=== PATIENT | female | born 1990 ===

== ENCOUNTER 2018-05-16 19:27 | Emergency (ER) | payer OTHER ==
[2018-05-17 00:50] VITALS: BP 122/70; PULSE 72; RESP 18; TEMP 98; O2SAT 99
--- NOTE | 2018-05-19 13:14 | ED PDOC ---
HPI: Psych/Substance Abuse Time Seen by Provider: 05/16/18 20:42 Chief Complaint (Nursing): Psychiatric Evaluation Additional Complaint(s): 27 y/o female with PMH autism, anxiety, depression, OCD, presents to the ED with her mother for psychiatric evaluation. Pt has been feeling very depressed lately and believes her typical medication regimen is not working. She is compliant with her medication and follows up regularly with her psychiatrist and therapist, last visit to psychiatrist Dr. Sutton 1 month ago at [facility]. Pt offering no physical complaints at this time. Denies substance use, SI, HI, hallucinations, delusions, fever, chills, abdominal pain, headache, cough, back pain, chest pain, SOB, Past Medical History Reviewed: Historical Data, Nursing Documentation, Vital Signs Vital Signs: Last Vital Signs Temp 98 F 05/16/18 23:30 Pulse 72 05/16/18 23:30 Resp 18 05/16/18 23:30 BP 122/70 05/16/18 23:30 Pulse Ox 99 05/16/18 23:30 - Medical History PMH: Depression Denies: Diabetes, Hepatitis, HIV, HTN, Seizures, Sexually Transmitted Disease Other PMH: Anxiety, OCD, Autism - Family History Family History: States: Unknown Family Hx - Allergies Allergies/Adverse Reactions: Allergies Allergy/AdvReac Type Severity Reaction Status Date / Time Penicillins Allergy RASH Verified 05/16/18 19:31 Review of Systems ROS Statement: Except As Marked, All Systems Reviewed And Found Negative Constitutional: Negative for: Fever, Chills Eyes: Negative for: Vision Change ENT: Negative for: Nose Congestion Cardiovascular: Negative for: Chest Pain, Palpitations Respiratory: Negative for: Cough, Shortness of Breath Gastrointestinal: Negative for: Nausea, Vomiting, Abdominal Pain Genitourinary Female: Negative for: Dysuria, Frequency Musculoskeletal: Negative for: Neck Pain, Back Pain Skin: Negative for: Rash Neurological: Negative for: Weakness, Numbness, Incoordination, Headache, Dizziness Psych: Positive for: Anxiety, Depression. Negative for: Psychosis, Suicidal ideation, Withdrawal Physical Exam - Reviewed Nursing Documentation Reviewed: Yes Vital Signs Reviewed: Yes - Physical Exam Appears: Positive for: Well, Non-toxic, No Acute Distress Head Exam: Positive for: ATRAUMATIC, NORMAL INSPECTION, NORMOCEPHALIC Skin: Positive for: Normal Color, Warm, DRY Eye Exam: Positive for: EOMI, Normal appearance, PERRL ENT: Positive for: Normal ENT Inspection Neck: Positive for: Normal, Painless ROM Cardiovascular/Chest: Positive for: Regular Rate, Rhythm Respiratory: Positive for: CNT, Normal Breath Sounds Pulses-Radial (L): 2+ Pulses-Radial (R): 2+ Gastrointestinal/Abdominal: Positive for: Normal Exam, Bowel Sounds (normal), Soft. Negative for: Tenderness Back: Positive for: Normal Inspection Extremity: Positive for: Normal ROM Neurologic/Psych: Positive for: Alert, glaucoma specialist II-XII (intact), Oriented, Mood/ Affect (appropriate), Gait (steady). Negative for: Motor/Sensory Deficits - Laboratory Results Urine POC: Negative - ECG O2 Sat by Pulse Oximetry: 99 Medical Decision Making Medical Decision Making: Initial Plan: * Crisis Evaluation * POC urine preg Pt offering no physical complaints at this time, requires no further workup with normal physical exam findings. Impression Depression, Anxiety, Autism Plan Followup with PSYCHIATRIC as instructed by crisis Take home medications as prescribed Return to ER for new/worsening symptoms Disposition - Clinical Impression Clinical Impression: Anxiety disorder, unspecified, Depression, Autism - Patient ED Disposition Is Patient to be Admitted: No - Disposition Disposition: Routine/Home Disposition Time: 23:25 Condition: STABLE Additional Instructions: Followup with [facility] per Crisis Followup with psychiatry and therapy as scheduled Return to ER for new or worsening symptoms Forms: Havsjo Delikatesser (Mexican)
== END 2018-05-16 23:45 | disposition home or self-care (01) ==
LOC: H.ER 19:27
DX: F41.9 Anxiety disorder, unspecified (principal); F32.9 Major depressive disorder, single episode, unspecified; F84.0 Autistic disorder; Z88.0 Allergy status to penicillin

== ENCOUNTER 2018-07-27 11:46 | Inpatient (IN) | payer OTHER ==
[2018-07-27 11:48] VITALS: BMI 43.4
--- NOTE | 2018-07-27 12:33 | ED PDOC ---
HPI: Psych/Substance Abuse Time Seen by Provider: 07/27/18 12:18 Chief Complaint (Nursing): Psychiatric Evaluation Chief Complaint (Provider): Psyciatric Evaluation History Per: Patient History/Exam Limitations: no limitations Onset/Duration Of Symptoms: Days (4x) Current Symptoms Are (Timing): Still Present Severity: Moderate Associated Symptoms: Suicidal Thoughts. denies: Suicidal Plan, Other (hallucinations) Additional Complaint(s): 28 year old female with a past medical history of depression, anxiety, bipolar d isorder, and OCD is sent to the ED by her therapist () for a psychiatric evaluation secondary to having suicidal thoughts x4 days. Patient denies having a specific plan, and states that she does not want to hurt herself, but cannot control these thoughts. Denies A/V hallucinations, HI. Last known menstrual period: 07/16/2018. (-) substance abuse, (-) physical complaints. PMD: Zohra Egan MD Past Medical History Reviewed: Historical Data, Nursing Documentation, Vital Signs Vital Signs: Last Vital Signs Temp 98.1 F 07/27/18 11:48 Pulse 89 07/27/18 11:48 Resp 20 07/27/18 11:48 BP 132/84 07/27/18 11:48 Pulse Ox 100 07/27/18 11:48 - Medical History PMH: Anxiety, Bipolar Disorder, Depression Other PMH: OCD, autism - Surgical History Surgical History: No Surg Hx - Family History Family History: States: No Known Family Hx - Social History Current smoker - smoking cessation education provided: Yes Alcohol: Occasional Drugs: Denies - Home Medications Home Medications: Ambulatory Orders Medication Instructions Recorded clonazePAM [Klonopin] 1 mg PO HS 07/27/18 lamoTRIgine [Lamictal] 25 mg PO HS 07/27/18 - Allergies Allergies/Adverse Reactions: Allergies Allergy/AdvReac Type Severity Reaction Status Date / Time Penicillins Allergy RASH Verified 07/27/18 12:13 Review of Systems ROS Statement: Except As Marked, All Systems Reviewed And Found Negative Constitutional: Negative for: Fever Respiratory: Negative for: Shortness of Breath Gastrointestinal: Negative for: Vomiting Neurological: Negative for: Headache Psych: Positive for: Suicidal ideation. Negative for: Other (suicidal plan, homicidal ideation, hallucinations (auditory and visual)) Physical Exam - Reviewed Nursing Documentation Reviewed: Yes Vital Signs Reviewed: Yes - Physical Exam Comments: GENERAL APPEARANCE: Patient is awake, alert, oriented x 3, in no acute distress; resting comfortably. SKIN: Warm, dry; (-) cyanosis ENMT: Mucous membranes moist. Airway patent: (-) stridor. NECK: Supple, FROM HEART AND CARDIOVASCULAR: (-) irregularity CHEST AND RESPIRATORY: (-) rales, (-) rhonchi, (-) wheezes; breath sounds equal bilaterally. Respirations even and nonlabored. ABDOMEN: Soft, (-) distention, (-) tenderness, (-) guarding. NEURO AND PSYCH: Mental status as above. Affect: flat. (-) facial asymmetry. Gait: steady. Speech: clear. - Laboratory Results Result Diagrams: 07/27/18 13:36 07/27/18 13:36 Urine POC: Negative - ECG O2 Sat by Pulse Oximetry: 100 (RA) Pulse Ox Interpretation: Normal Medical Decision Making Medical Decision Makin:18 Clinical impression: 28 year old female presents to the ED for a psychiatric evaluation Initial plan: * crisis evaluation * 1:1 observation * reevaluation 1250 Crisis at bedside. 1310 Per crisis evaluation, patient to be admitted for Depression per Dr Ayon. CBC, CMP, serum alcohol, U/A, Upreg, UDS ordered for medical clearance. 1340 Upreg: negative 1430 On re-evaluation, patient resting comfortably. Labs reviewed and grossly unremarkable. Utox: negative Serum alcohol < 10. U/A with trace leukocytes and no nitrates. In presence of squamous epithelial cells, likely contamination. Patient denies urinary symptoms. Patient is medically stable for psychiatric admission. Arrangements made for admission - patient agreeable to admission. Scribe Attestation: Documented David Maharaj, acting as a scribe for Lexus K Edwin RPA- C. Provider Scribe Attestation: All medical record entries made by the Scribe were at my direction and personally dictated by me. I have reviewed the chart and agree that the record accurately reflects my personal performance of the history, physical exam, medical decision making, and the department course for this patient. I have also personally directed, reviewed, and agree with the discharge instructions and disposition. Disposition - Clinical Impression Clinical Impression: Depression - Patient ED Disposition Is Patient to be Admitted: Yes Counseled Patient/Family Regarding: Studies Performed, Diagnosis - Disposition Disposition Time: 14:30 Condition: FAIR - Pt Status Changed To: Hospital Disposition Of: Inpatient - Admit Certification Admit to Inpatient:: After my assessment, the patient will require hospitalization for at least two midnights. This is because of the severity of symptoms shown, intensity of services needed, and/or the medical risk in this patient being treated as an outpatient. - POA Present On Arrival: None Results - Lab Results Lab Results: 07/27/18 07/27/18 07/27/18 13:36 13:36 13:15 WBC 10.1 RBC 4.78 Hgb 14.5 Hct 42.8 MCV 89.6 MCH 30.3 MCHC 33.9 RDW 13.9 Plt Count 353 MPV 8.4 Neut % (Auto) 56.9 Lymph % (Auto) 29.3 Dewey % (Auto) 7.3 Eos % (Auto) 5.2 H Baso % (Auto) 1.3 Neut # (Auto) 5.8 Lymph # (Auto) 3.0 Dewey # (Auto) 0.7 Eos # (Auto) 0.5 Baso # (Auto) 0.1 Sodium 139 Potassium 4.4 Chloride 100 Carbon Dioxide 26 Anion Gap 17 BUN 14 Creatinine 0.8 Est GFR ( Amer) > 60 Est GFR (Non-Af Amer) > 60 Random Glucose 102 Calcium 9.8 Total Bilirubin 0.5 AST 27 ALT 38 Alkaline Phosphatase 115 Total Protein 8.5 H Albumin 4.6 Globulin 3.9 Albumin/Globulin Ratio 1.2 Urine Color Yellow Urine Clarity Slighty-cloudy Urine pH 5.0 Ur Specific [place] 1.017 Urine Protein Negative Urine Glucose (UA) Neg Urine Ketones Negative Urine Blood Negative Urine Nitrate Negative Urine Bilirubin Negative Urine Urobilinogen 0.2-1.0 Ur Leukocyte Esterase Trace Urine RBC (Auto) 3 Urine Microscopic WBC 4 Ur Squamous Epith Cells 5 Urine Bacteria Rare Urine Opiates Screen Urine Methadone Screen Ur Barbiturates Screen Ur Phencyclidine Scrn Ur Amphetamines Screen U Benzodiazepines Scrn U Oth Cocaine Metabols U Cannabinoids Screen Alcohol, Quantitative < 10 07/27/18 13:15 WBC RBC Hgb Hct MCV MCH MCHC RDW Plt Count MPV Neut % (Auto) Lymph % (Auto) [place] % (Auto) Eos % (Auto) Baso % (Auto) Neut # (Auto) Lymph # (Auto) Dewey # (Auto) Eos # (Auto) Baso # (Auto) Sodium Potassium Chloride Carbon Dioxide Anion Gap BUN Creatinine Est GFR ( Amer) Est GFR (Non-Af Amer) Random Glucose Calcium Total Bilirubin AST ALT Alkaline Phosphatase Total Protein Albumin Globulin Albumin/Globulin Ratio Urine Color Urine Clarity Urine pH Ur Specific [place] Urine Protein Urine Glucose (UA) Urine Ketones Urine Blood Urine Nitrate Urine Bilirubin Urine Urobilinogen Ur Leukocyte Esterase Urine RBC (Auto) Urine Microscopic WBC Ur Squamous Epith Cells Urine Bacteria Urine Opiates Screen Negative Urine Methadone Screen Negative Ur Barbiturates Screen Negative Ur Phencyclidine Scrn Negative Ur Amphetamines Screen Negative U Benzodiazepines Scrn Negative U Oth Cocaine Metabols Negative U Cannabinoids Screen Negative Alcohol, Quantitative
[2018-07-27 13:50] LABS: BASO # 0.1 K/uL (0.0-0.2); BASO % 1.3 % (0.0-2.0); EOS # 0.5 K/uL (0.0-0.7); EOS % 5.2 % (0.0-4.0); HEMOGLOBIN 14.5 g/dL (12.0-16.0); LYMPH % 29.3 % (20.0-40.0); MEAN CELL VOLUME 89.6 fl (81.0-99.0); MEAN CORPUSCULAR HEMOGLOBIN 30.3 pg (27.0-31.0); MEAN CORPUSCULAR HGB CONC 33.9 g/dL (33.0-37.0); MEAN PLATELET VOLUME 8.4 fl (7.2-11.7); MONO # 0.7 K/uL (0.0-0.8); MONO % 7.3 % (0.0-10.0); NEUT # 5.8 K/uL (1.8-7.0); NEUT % 56.9 % (50.0-75.0); NRBC % 0.1 % (0.0-0.0); RBC 4.78 Mil/uL (3.80-5.20); RED CELL DISTRIBUTION WIDTH 13.9 % (11.5-14.5); WHITE BLOOD COUNT 10.1 K/uL (4.8-10.8)
[2018-07-27 14:03] LABS: ALB/GLOB RATIO 1.2 (1.0-2.1); ALBUMIN 4.6 g/dL (3.5-5.0); ALT/SGPT 38 U/L (9-52); AST/SGOT 27 U/L (14-36); BLOOD UREA NITROGEN 14 mg/dl (7-17); CALCIUM 9.8 mg/dL (8.4-10.2); GFR NON-AFRICAN AMERICAN > 60
[2018-07-27 14:03] LABS: BARBITURATES, UR NEGATIVE (NEGATIVE); BENZODIAZEPINES, UR NEGATIVE (NEGATIVE); OPIATES, UR NEGATIVE (NEGATIVE); PHENCYCLIDINE, UR NEGATIVE (NEGATIVE)
[2018-07-27 14:10] LABS: SQUAMOUS EPITHIAL 5 /hpf (0-5); URINE BACTERIA RARE (<OCC); URINE BILIRUBIN NEGATIVE (NEGATIVE); URINE BLOOD NEGATIVE (NEGATIVE); URINE CLARITY SLIGHTY-CLOUDY (Clear); URINE COLOR YELLOW (YELLOW); URINE GLUCOSE (UA) NEG (NEGATIVE); URINE LEUKOCYTE ESTERASE TRACE Leu/uL (Negative); URINE PROTEIN NEGATIVE (NEGATIVE); URINE UROBILINOGEN 0.2-1.0 mg/dL (0.2-1.0)
[2018-07-27 16:52] VITALS: RESP 18
[2018-07-27] MEDS ORDERED: Magnesium Hydroxide Susp 30 ml UD PO PRN (18:19)
[2018-07-27] MEDS ORDERED: DiphenhydrAMINE 50 mg/ml Inj IM PRN (18:19)
[2018-07-27] MEDS ORDERED: Alum-Mag Hydrox-Simethicone Susp (30 mL) PO PRN (18:19)
--- NOTE | 2018-07-27 18:38 | PCM.BM ---
Treatment assets and liabiliti Patient Assests: cooperative, self-reliant, ADL independent, physically healthy, good support system - Milieu Protocol Maintain good personal hygiene: daily Encourage regular showers, daily Remind patient to perform daily oral care, daily Assist patient to perform ADL's Conduct patient checks and document Observation sheet: Q15 minutes Maintain personal safety: every shift Educate patient to report safety concerns to staff, every shift Monitor environment for contraband/sharps Medication safety: Monitor for expected outcome, potential side effects: daily, Assess barriers to learning: daily, Assess readiness for medication education: daily
[2018-07-27 19:04] VITALS: O2SAT 100
[2018-07-28 08:15] LABS: T4 10.2 ug/dl (5.5-11.0)
[2018-07-28] MEDS ORDERED: Influenza Vaccine (5 YR UP)/PF 60 MCG/0.5 ML SYR IM ONE (09:00)
[2018-07-28] MEDS ORDERED: Pneumococcal 23-Valent Vaccine IM ONE (10:00)
--- NOTE | 2018-07-28 22:19 | PCM.PSYCH ---
Initial Psychiatric Evaluation - Initial Psychiatric Evaluation Type of Admission: Voluntary Chief Complaint (in patient's own words): went to my dr, i was feeling down, made general statement about not wanting to be in this world, Patient's Reaction to Hospitalization: signed voluntarily History of Present Illness and Precipitating Events: signed in voluntarily but later submitted 48 hour notice-reports due to have austism spectrum concerns liking routine when not in familiar environment gets more nervous what to go home with familiar circumstances Current Medications: Active Medications Generic Name Dose Route Start Last Admin Trade Name Freq PRN Reason Stop Dose Admin Acetaminophen 650 mg 07/27/18 18:19 Tylenol 325mg Tab PO Q4 PRN pain (4-7) Al Hydrox/Mg Hydrox/Simethicone 30 ml 07/27/18 18:19 Maalox Plus 30 Ml PO Q4 PRN Dyspepsia Clonazepam 1 mg 07/28/18 22:00 07/28/18 21:48 Klonopin PO 1 mg HS VANNA Administration Diphenhydramine HCl 50 mg 07/27/18 18:19 Benadryl IM Q6 PRN Extrapyramidal S/S Unable PO Diphenhydramine HCl 50 mg 07/27/18 18:26 07/28/18 00:05 Benadryl PO 50 mg HS PRN Administration Sleep Diphenhydramine HCl 50 mg 07/27/18 20:02 Benadryl PO Q6 PRN Extrapyramidal Symptoms Haloperidol 5 mg 07/27/18 18:19 Haldol PO Q4 PRN Agitation Haloperidol Lactate 5 mg 07/27/18 18:19 Haldol IM Q4 PRN Agitation, Unable to Take PO Lamotrigine 25 mg 07/28/18 22:00 Lamictal PO BID VANNA Lorazepam 2 mg 07/27/18 18:19 Ativan IM Q4 PRN Anxiety/Agitation,Unable PO Lorazepam 1 mg 07/27/18 18:27 07/27/18 21:24 Ativan PO 1 mg Q8 PRN Administration Anxiety Magnesium Hydroxide 30 ml 07/27/18 18:19 Milk Of Magnesia PO HS PRN Constipation Past Psychiatric History - Past Psychiatric History Prior Professional Help: opd, inpt Duration: multiple varied Explanation of prior treatment: pt treatment at [facility] per [facility] opd, previous inpt and opd treatment-ocd, anxiety, autism spectrum, bipolor II History of Abuse: denies History of ETOH/Drug Use: denied History of Family Illness: denied Pertinent Medical Hx (Current Medical&Sleep Prob, Allergies): Allergies Allergy/AdvReac Type Severity Reaction Status Date / Time Penicillins Allergy RASH Verified 07/27/18 12:13 clonazePAM [Klonopin] 1 mg PO HS 07/27/18 lamoTRIgine [Lamictal] 25 mg PO HS 07/27/18 Review of Systems - Psychiatric Psychiatric: Abnormal Sleep Pattern, Anxiety, Depression, Irritability, Mood Swings, Suicidal Ideation Mental Status Examination - Personal Presentation Personal Presentation: Looks stated age - Affect Affect: Constricted - Motor Activity Motor Activity: Psychomotor Retardation - Reliability in Providing Information Reliability in Providing Information: Fair - Speech Speech: Organized - Formal Thought Process Formal Thought Process: Loosening of associations - Obsessions/Compulsions Obsessions: Yes Description of Obsession/Compulsion: renumerative thoughts - Cognitive Functions Orientation: Person, Place, Situation Sensorium: Alert Attention/Concentration: Attentive Judgement: Imparied, as evidence by: Poor judgement Memory: Remote impaired as evidenced by: Other - Risk Risk: Suicidal, Diminished functioning - Strength & Assets Inventory Strength & Assets Inventory: Family support, Cooperative (recent changes in medication per pt, family stressors ) DSM 5 DX - DSM 5 DSM 5 Diagnosis: bipor II hx ocd, autism spectrum, insomnia - Recommended/Plan of Treatment Treatment Recommendations and Plan of Treatment: admission per attending md vital signs and clinical observation per protocol and per clinical status prns per protocol and per clinical status hospitalist consult review significance of 48 hours pt defers withdrawal of 48 hour notice increase lamictal to 50mg po hs (from increase 25 mg po hs) discharge planning in process Projected ELOS: 5-7 days Prognosis: guarded Discharge Plan and Discharge Criteria: safety - Smoking Cessation Smoking Cessation Initiated: No Reason for not providing: pt defers
[2018-07-29 09:18] VITALS: BP 127/78; PULSE 112; TEMP 97.8
--- NOTE | 2018-07-29 10:34 | CP.PCM.CON ---
History of Present Illness - History of Present Illness History of Present Illness: 27 yo female with history of autism and OCD admitted to psyche unit because of worsening depression and suicidal ideation Review of Systems - Review of Systems All systems: reviewed and no additional remarkable complaints except (aside from those mentioned above, 12 point system review were negative by me) Past Patient History - Tetanus Immunizations Tetanus Immunization: Unknown - Past Social History Alcohol: Occasional Drugs: Denies - CARDIAC Hx Hypertension: No - PULMONARY Hx Tuberculosis: No - NEUROLOGICAL Hx Seizures: No - HEENT Hx HEENT Problems: No - RENAL Hx Chronic Kidney Disease: No - ENDOCRINE/METABOLIC Other/Comment: small polyp in her thyroid as per pt - HEMATOLOGICAL/ONCOLOGICAL Hx Human Immunodeficiency Virus (HIV): No - INTEGUMENTARY Hx Dermatological Problems: No - MUSCULOSKELETAL/RHEUMATOLOGICAL Hx Musculoskeletal Disorders: No - GENITOURINARY/GYNECOLOGICAL Hx Sexually Transmitted Disorders: No - PSYCHIATRIC Hx Anxiety: Yes Hx Bipolar Disorder: Yes Hx Depression: Yes - SURGICAL HISTORY Hx Surgeries: No - ANESTHESIA Hx Anesthesia: No Meds Allergies/Adverse Reactions: Allergies Allergy/AdvReac Type Severity Reaction Status Date / Time Penicillins Allergy RASH Verified 07/27/18 12:13 - Medications Medications: Current Medications Acetaminophen (Tylenol 325mg Tab) 650 mg PO Q4 PRN PRN Reason: pain (4-7) Al Hydrox/Mg Hydrox/Simethicone (Maalox Plus 30 Ml) 30 ml PO Q4 PRN PRN Reason: Dyspepsia Clonazepam (Klonopin) 1 mg PO HS [facility] Last Admin: 07/28/18 21:48 Dose: 1 mg Diphenhydramine HCl (Benadryl) 50 mg IM Q6 PRN PRN Reason: Extrapyramidal S/S Unable PO Diphenhydramine HCl (Benadryl) 50 mg PO HS PRN PRN Reason: Sleep Last Admin: 07/29/18 01:19 Dose: 50 mg Diphenhydramine HCl (Benadryl) 50 mg PO Q6 PRN PRN Reason: Extrapyramidal Symptoms Haloperidol (Haldol) 5 mg PO Q4 PRN PRN Reason: Agitation Haloperidol Lactate (Haldol) 5 mg IM Q4 PRN PRN Reason: Agitation, Unable to Take PO Lamotrigine (Lamictal) 25 mg PO BID [facility] Last Admin: 07/29/18 09:02 Dose: 25 mg Lorazepam (Ativan) 2 mg IM Q4 PRN PRN Reason: Anxiety/Agitation,Unable PO Lorazepam (Ativan) 1 mg PO Q8 PRN PRN Reason: Anxiety Last Admin: 07/27/18 21:24 Dose: 1 mg Magnesium Hydroxide (Milk Of Magnesia) 30 ml PO HS PRN PRN Reason: Constipation Physical Exam - Constitutional Appears: No Acute Distress - Head Exam Head Exam: ATRAUMATIC - Eye Exam Eye Exam: absent: Scleral icterus - ENT Exam ENT Exam: Mucous Membranes Moist - Neck Exam Neck exam: Negative for: Meningismus - Respiratory Exam Respiratory Exam: absent: Rales, Rhonchi, Wheezes, Respiratory Distress - Cardiovascular Exam Cardiovascular Exam: REGULAR RHYTHM, +S1, +S2 - GI/Abdominal Exam GI & Abdominal Exam: Soft. absent: Tenderness - Rectal Exam Rectal Exam: Deferred - Extremities Exam Extremities exam: Negative for: pedal edema - Back Exam Back exam: NORMAL INSPECTION - Neurological Exam Neurological exam: Alert, Oriented x3 - Psychiatric Exam Psychiatric exam: Normal Affect - Skin Skin Exam: Dry, Intact Results - Vital Signs Recent Vital Signs: Last Vital Signs Temp 97.8 F 07/29/18 09:00 Pulse 112 H 07/29/18 09:00 Resp 18 07/29/18 09:00 BP 127/78 07/29/18 09:00 Pulse Ox 100 07/27/18 19:07 - Labs Result Diagrams: 07/27/18 13:36 07/27/18 13:36 Labs: Laboratory Results - last 24 hr 07/28/18 06:45 RPR Nonreactive Assessment & Plan (1) Depression Status: Acute Comment: psyche is managing
--- NOTE | 2018-07-29 18:19 | PCM.PYCHDC ---
Mental Status Examination - Mental Status Examination Orientation: Person, Place, Situation, Time Memory: Intact Mood: Depressed, Anxious Affect: Broad Speech: Soft Attention: WNL Concentration: WNL Association: WNL Fund of Knowledge: WNL Formal Thought Process: No Impairment Description of patient's judgement and insight: improved Psychotic Thoughts and Behaviors: denies Suicidal Ideation: No Current Homicidal Ideation?: No Discharge Summary - Discharge Note Reason for Hospitalization: signed voluntarily Psychiatric History (includes Medical, Family, Personal Hx): Pt is a 28 y/o female who was brought into ED by EMS and was sent Laboratory Data: Abnormal Lab Results 07/28/18 06:45 Hemoglobin A1c 5.3 Consultations:: List each consultation separately and include: 1. Reason for request. 2. Findings. 3. Follow-up Consultations: pt seen by hospitalist Summary of Hospital Course include:: 1. Description of specific treatment plan utilized for patients during their course of treatmen. 2. Summarize the time- course for resolution of acute symptoms and/or regressed behaviors. 3. Describe issues identified and worked on during hospitalization. 4. Describe medication utilized. 5. Describe medical problems identified and treated. 6. Reassessment of suicide risk Summary of Hospital Course: signed in voluntarily but later submitted 48 hour notice-reports due to have austism spectrum concerns liking routine when not in familiar environment gets more nervous what to go home with familiar circumstances p Pt is a 28 y/o female who was brought into ED by EMS and was sent by [facility] due to expressing SI to her psychiatrist. Pt stated she was at her usual appt. with Dr. Hsieh and told her she was feeling suicidal. Pt stated she did tell her she had plans, however, meant it more as ideations and no intent on killing herself. Pt reported she has been going to [facility] for about 2-3 months. Pt stated she has an hx of Depression, Anxiety, Autism, OCD, and Bipolar II. Pt reported taking Klonopin 1mg and Lamictal 50mg and stated the psychiatrist just increased her doses today. Pt stated she has been going through issues with her friends and stated they are not friends anymore. Pt stated she does not feel her one friend understands her mental illness and did not understand that she j ust started meds about a month ago and was not taking her meds for a while. Pt stated she loves to draw, however, pt stated she does not feel she is getting recognition on social media, whereas, others are getting many followers. Pt stated her appetite has increased and her sleep is poor and stated she is unable to sleep. Pt stated she lives with her mom, step dad, and step brother. Pt denied current s/h ideations, as well as, a/v hallucinations. Pt denied ever attempting suicide in the past, however, pt reported she has cut herself about 1-2 years ago. Pt stated she has to think about signing in to the psych unit if offered admission due to feeling the psychiatrist rushed the decision to sending her here. Pt stated she has never been admitted to any psych units in the past and stated she was in this ED but discharged a month ago. Pt denied current/past abuse. Pt stated she drinks alcohol 1x a week and smokes cigarettes 1x a week. Pt denied having a criminal background. Pt stated her mom has an hx of Depression and her biological dad has an hx of Autism. .pt was seen by hospitalist. family meeting with pt and pt's mother held, status reviewed case discussed as well significance of 48 hour notice. at this time pt does not appear to meet screen criteria. mother denies concern about bring pt home. pt contracts for safety. admits would call 911 or [phone] if suicidal homicidal ideations. verbalizes desire to continue dr almanza upon discharge. pt [facility] number of [facility] pt and mother verbally agreeable to plan defers further questions. - Final Diagnosis (DSM 5) Condition upon Discharge: FAIR Disposition: HOME/ ROUTINE Follow-up Treatment Plan: pt to be discharged per attending physician pt to follow up psychiatric dr almanza crisis plan [phone] 911 may contact [facility] for follow up if f/u appt with psychiatric if [facility] appt is necessary - Smoking Cessation Smoking Cessation Medication prescribed: No - Antipsychotic Medications Pt discharged on 2 or more routine antipsychotic medications: No
== END 2018-07-29 18:53 | disposition home or self-care (01) | DRG 430 ==
LOC: H.ER 11:46 → H.ERHOLD 15:09 → H.PSYCH 18:06
PROVIDERS: ADMIT Psychiatry & Neurology Psychiatry; ATTEND Psychiatry & Neurology Psychiatry
PROC: GZHZZZZ Group Psychotherapy (ICD-10-PCS; principal; 2018-07-27)
DX: F31.81 Bipolar II disorder (principal); F17.210 Nicotine dependence, cigarettes, uncomplicated; F84.0 Autistic disorder; R45.851 Suicidal ideations; Z88.0 Allergy status to penicillin; F42.9 Obsessive-compulsive disorder, unspecified; F41.9 Anxiety disorder, unspecified